=== PATIENT | female | born 1980 | race Caucasian/White ===

== ENCOUNTER 2022-03-19 11:07 | Day surgery (SDC) | payer OTHER, BC ==
[2022-03-19] MEDS ORDERED: hydrALAZINE 20 MG/ML VIAL SLOW IVP PRN (11:56)
== END 2022-03-19 19:20 | disposition home health service (06) ==
LOC: CSHLD/OP 11:07
PROVIDERS: ATTEND Obstetrics & Gynecology
DX: O9A.213 Injury, poisoning and certain other consequences of external causes complicating pregnancy, third trimester (principal); S80.02XA Contusion of left knee, initial encounter; O09.513 Supervision of elderly primigravida, third trimester; Z3A.33 33 weeks gestation of pregnancy; Z87.891 Personal history of nicotine dependence; Z79.82 Long term (current) use of aspirin; Z79.899 Other long term (current) drug therapy; W01.0XXA Fall on same level from slipping, tripping and stumbling without subsequent striking against object, initial encounter; Y99.0 Civilian activity done for income or pay
CPT/HCPCS: 76819; 99282

== ENCOUNTER 2022-04-20 09:44 | Outpatient (CLI) | payer BC, OTHER | END 2022-04-20 09:45 | disposition home or self-care (01) | LOC: CSHLAB 09:44 | PROVIDERS: ATTEND Obstetrics & Gynecology | DX: Z20.822 Contact with and (suspected) exposure to COVID-19 (principal) | CPT/HCPCS: U0003; U0005 ==

== ENCOUNTER 2022-04-24 14:00 | Inpatient (IN) | payer BC, OTHER ==
[~2022-04-24 14:00] MED LIST: Bupivacaine 0.25% HCL 30 ML VIAL ONE
[2022-04-24 16:18] VITALS: BMI 54.8
[2022-04-24] MEDS ORDERED: Butorphanol Tartrate 1 MG/ML VIAL SLOW IVP PRN (16:36)
[2022-04-24] MEDS ORDERED: hydrALAZINE 20 MG/ML VIAL SLOW IVP PRN ×3 (16:36)
[2022-04-24] MEDS ORDERED: Calcium Gluc 4.6 MEQ/10 ML (100 MG/ML) SLOW IVP PRN (16:36)
[2022-04-24] MEDS ORDERED: Zolpidem Tartrate 5 MG TAB PO PRN (16:36)
[2022-04-24] MEDS ORDERED: HYDROcodone/Acetaminophen 5/325 mg Tablet PO PRN ×2 (16:36)
[2022-04-24] MEDS ORDERED: Promethazine HCl 25 MG/ML VIAL IM PRN (16:36)
[2022-04-24] MEDS ORDERED: NS w/ Oxytocin 30 units 500 ML IV SCH ×2 (16:36)
[2022-04-24] MEDS ORDERED: Ondansetron PF 4 MG/2 ML Vial IVP PRN (16:36)
[2022-04-24] MEDS ORDERED: Labetalol HCl 100 MG/20 ML VIAL SLOW IVP PRN ×2 (16:36)
[2022-04-24] MEDS ORDERED: Lidocaine 1% (PF) 30 ML VIAL SC PRN (16:36)
[2022-04-24] MEDS ORDERED: Docusate 100 MG CAP PO PRN (16:36)
[2022-04-24] MEDS ORDERED: Ibuprofen 800 MG TAB PO PRN (16:36)
[2022-04-24] MEDS ORDERED: Misoprostol 200 MCG TAB PR PRN (16:36)
[2022-04-24] MEDS ORDERED: Lorazepam 2 MG/ML VIAL SLOW IVP PRN (16:36)
[2022-04-24] MEDS ORDERED: Acetaminophen 500 MG TAB PO PRN (16:36)
[2022-04-24] MEDS ORDERED: Diphenoxylate HCl/Atropine Tablet PO PRN ×2 (16:36)
[2022-04-24 16:43] LABS: Hemoglobin 11.1 g/dL (12.0-15.5); Mean Corpuscular HGB CONC 34.5 g/dL (32.0-36.0); Mean Corpuscular Hemoglobin 30.7 pg (27.0-33.0); Mean Corpuscular Volume 89.2 fl (81.6-98.3); Mean Platelet Volume 12.4 fl (7.4-10.4); Platelet Count 190 10x3/uL (150-450); Red Blood Cell (RBC) Count 3.61 10x6/uL (3.90-5.03); White Blood Cell (WBC) Count 8.3 10x3/uL (3.5-10.5)
[2022-04-24] MEDS: Misoprostol 100 MCG TAB VAG SCH ×3 (16:54→23:10)
[2022-04-24 17:24] LABS: HBSAg Index 0.13 S/CO (0-0.99); HIV (1/2) Antibody/Antigen Non-Reactive (NonReactive); HIV 1/2 INDEX 0.09 S/CO (<1.00); Hep B Surf Ag Non-Reactive S/CO (NonReactive); Syphilis Antibody Nonreactive (Nonreactive); Syphilis Antibody Index 0.06 S/CO (<1.00 Non-Reactive)
[2022-04-24] MEDS: Mag-Al 1200 mg/1200 mg/30 ML UDCUP PO PRN (18:15)
[2022-04-24] MEDS: Lactated Ringer's 1,000 ML IV SCH (21:17)
[2022-04-25] MEDS: Misoprostol 100 MCG TAB VAG SCH ×2 (02:10→06:17)
[2022-04-25] MEDS: Lactated Ringer's 1,000 ML IV SCH (05:50)
[2022-04-25] MEDS ORDERED: Fentanyl 2 mcg/Bup 0.1% Cadd 0 ML ONE (11:21)
[2022-04-25] MEDS ORDERED: Naloxone HCl 0.4 mg/ml Vial IVP PRN ×2 (12:18)
[2022-04-25] MEDS ORDERED: Moisturizing Cream (Eucerin) 113 GM JAR TOP PRN (12:18)
[2022-04-25] MEDS ORDERED: diphenhydrAMINE 50 MG/ML VIAL IVP PRN (12:18)
[2022-04-25] MEDS ORDERED: ePHEDrine Sulfate 50 MG/10 ML VIAL SLOW IVP PRN (12:18)
[2022-04-25] MEDS ORDERED: Promethazine HCl 25 MG/ML VIAL IM PRN (12:18)
[2022-04-25] MEDS ORDERED: Ondansetron PF 4 MG/2 ML Vial IVP PRN ×2 (12:18→20:23)
[2022-04-25] MEDS ORDERED: Acetaminophen 325 MG TAB PO PRN (12:18)
[2022-04-25] MEDS ORDERED: Lactated Ringer's 500 ML IV PRN (12:18)
[2022-04-25] MEDS ORDERED: Fentanyl 2 mcg/Bupivacaine 0.1% Cassette 100 ML EPIDURAL SCH (12:30)
[2022-04-25] MEDS ORDERED: Communication Order-Pharmacy FS SCH (12:30)
[2022-04-25] MEDS: Mag-Al 1200 mg/1200 mg/30 ML UDCUP PO PRN (16:39)
[2022-04-25] MEDS ORDERED: Fentanyl 2 mcg/Bup 0.1% Cadd 100 ML ONE (19:45)
[2022-04-25] MEDS ORDERED: Lidocaine 1% (PF) 30 ML VIAL ONE (20:02)
[2022-04-25] MEDS ORDERED: Benzocaine-Menthol 82.5 ML CAN TOP PRN (20:23)
[2022-04-25] MEDS ORDERED: hydrALAZINE 20 MG/ML VIAL SLOW IVP PRN (20:23)
[2022-04-25] MEDS ORDERED: Boostrix 0.5 ML (Tdap) VIAL IM ONE (20:23)
[2022-04-25] MEDS ORDERED: Preparation H Ointment 28 GM TUBE PR PRN (20:23)
[2022-04-25] MEDS ORDERED: HYDROcodone/Acetaminophen 5/325 mg Tablet PO PRN ×2 (20:23)
[2022-04-25] MEDS ORDERED: Misoprostol 200 MCG TAB VAG PRN (20:23)
[2022-04-25] MEDS ORDERED: Lanolin Ointment 7 GM TUBE TOP PRN (20:23)
[2022-04-25] MEDS ORDERED: Zolpidem Tartrate 5 MG TAB PO PRN ×2 (20:23→20:43)
[2022-04-25] MEDS ORDERED: diphenhydrAMINE 25 MG CAP PO PRN (20:23)
[2022-04-25] MEDS ORDERED: Milk Of Magnesia 30 ML UDCUP PO PRN (20:23)
[2022-04-25] MEDS ORDERED: Bisacodyl 10 MG SUPP PR PRN (20:23)
[2022-04-25] MEDS: Ibuprofen 800 MG TAB PO SCH (20:51)
[2022-04-25] MEDS ORDERED: NS w/ Oxytocin 30 units 500 ML IV SCH (21:00)
[2022-04-25] MEDS: Docusate 100 MG CAP PO SCH (22:00)
[2022-04-26 04:59] LABS: Hemoglobin 9.7 g/dL (12.0-15.5); Mean Corpuscular Hemoglobin 30.9 pg (27.0-33.0); Mean Corpuscular Volume 88.2 fl (81.6-98.3); Mean Platelet Volume 12.7 fl (7.4-10.4); Platelet Count 138 10x3/uL (150-450); RBC Distribution Width 14.2 % (11.5-14.5); Red Blood Cell (RBC) Count 3.14 10x6/uL (3.90-5.03); White Blood Cell (WBC) Count 11.9 10x3/uL (3.5-10.5)
[2022-04-26] MEDS: Ibuprofen 800 MG TAB PO SCH ×3 (05:36→21:18)
[2022-04-26] MEDS: Prenatal Vitamin 1 TAB PO SCH (12:01)
[2022-04-26] MEDS: Docusate 100 MG CAP PO SCH ×2 (12:01→21:18)
[2022-04-26] MEDS: Ferrous Sulfate 325 MG TAB PO SCH ×2 (12:02→17:17)
[2022-04-26] MEDS: Misoprostol 100 MCG TAB VAG SCH (14:50)
[2022-04-26] MEDS: Lactated Ringer's 1,000 ML IV SCH (14:51)
[2022-04-26] MEDS ORDERED: Hydrocortisone 1% Cream 30 GM TUBE TOP PRN (15:10)
[2022-04-27] MEDS: Ibuprofen 800 MG TAB PO SCH (06:08)
[2022-04-27 07:51] VITALS: BP 128/60; TEMP 97.8
[2022-04-27] MEDS: Prenatal Vitamin 1 TAB PO SCH (08:38)
[2022-04-27] MEDS: Ferrous Sulfate 325 MG TAB PO SCH (08:38)
[2022-04-27] MEDS: Docusate 100 MG CAP PO SCH (08:38)
[2022-04-27] MEDS ORDERED: busPIRone HCl 5 MG TAB PO SCH (09:00)
== END 2022-04-27 13:45 | disposition home or self-care (01) | DRG 807 ==
LOC: CSHLD 15:55 → CSHPP 04-25 22:25
PROVIDERS: ADMIT Obstetrics & Gynecology; ATTEND Obstetrics & Gynecology
PROC: 10E0XZZ Delivery of Products of Conception, External Approach (ICD-10-PCS; principal; 2022-04-25)
PROC: 3E0P7VZ Introduction of Hormone into Female Reproductive, Via Natural or Artificial Opening (ICD-10-PCS; 2022-04-25)
PROC: 10907ZC Drainage of Amniotic Fluid, Therapeutic from Products of Conception, Via Natural or Artificial Opening (ICD-10-PCS; 2022-04-25)
PROC: 0HQ9XZZ Repair Perineum Skin, External Approach (ICD-10-PCS; 2022-04-25)
DX: O99.02 Anemia complicating childbirth (principal); Z37.0 Single live birth; Z91.048 Other nonmedicinal substance allergy status; Z3A.39 39 weeks gestation of pregnancy; F41.9 Anxiety disorder, unspecified; F32.A Depression, unspecified; D64.9 Anemia, unspecified; O99.344 Other mental disorders complicating childbirth; Z79.82 Long term (current) use of aspirin; Z79.899 Other long term (current) drug therapy; F17.210 Nicotine dependence, cigarettes, uncomplicated; O99.334 Smoking (tobacco) complicating childbirth; O70.0 First degree perineal laceration during delivery
CPT/HCPCS: 36415; 51702; 85027; 86780; 86850; 86900; 86901; 87340; 87389; J2590; J7120; S0020

== ENCOUNTER 2022-04-28 16:09 | Inpatient (IN) | payer BC, OTHER ==
[2022-04-28] MEDS ORDERED: Acetaminophen 500 MG TAB ONE (17:10)
[2022-04-28 17:16] LABS: #Eosinphils 0.1 10x3/uL (0.0-0.5); #Monocytes 0.6 10x3/uL (0.0-1.1); #Neutrophils 9.4 10x3/uL (1.5-8.4); %Basophils 0.3 % (0.0-2.0); %Eosinophils 0.5 % (0.0-6.0); %Lymphocytes 7.2 % (18.0-47.0); %Monocytes 5.3 % (0.0-10.0); %Neutrophils 84.5 % (40.0-75.0); Hemoglobin 9.2 g/dL (12.0-15.5); Mean Corpuscular HGB CONC 34.7 g/dL (32.0-36.0); Mean Corpuscular Hemoglobin 31.1 pg (27.0-33.0); Mean Corpuscular Volume 89.5 fl (81.6-98.3); Platelet Count 185 10x3/uL (150-450); RBC Distribution Width 14.3 % (11.5-14.5); Red Blood Cell (RBC) Count 2.96 10x6/uL (3.90-5.03); White Blood Cell (WBC) Count 11.1 10x3/uL (3.5-10.5)
[2022-04-28 17:26] LABS: ALT (SGPT) 30 U/L (8-55); AST (SGOT) 25 U/L (5-34); Albumin 2.9 g/dL (3.5-5.0); Alkaline Phosphatase 67 U/L (40-110); Anion Gap 17 mmol/L (10-20); BUN (Urea Nitrogen) 8 mg/dL (7.0-18.7); Bilirubin, Total 0.3 mg/dL (0.2-1.2); Calc. Creatinine Clearance 0 mL/min (70-130); Calcium 9.2 mg/dL (7.8-10.44); Carbon Dioxide 23 mmol/L (22-29); Chloride 104 mmol/L (98-107); Globulin 3.1 g/dL (2.4-3.5); Glucose 140 mg/dL (70-105); Potassium 3.6 mmol/L (3.5-5.1); Sodium 140 mmol/L (136-145)
[2022-04-28 17:48] LABS: Bilirubin Neg (Negative); Blood, Urine 250 (Negative); Clarity Bloody (Clear); Glucose, Urine (Dipstick) Normal (Negative); Ketone, Urine Negative (Negative); Leukocyte 500 (Negative); Nitrite Negative (Negative); Protein, Urine (Dipstick) 100 mg/dl (Neg-Trace); Specific Gravity, Urine 1.015 (1.002-1.036); Urobilinogen Normal mg/dL (Less than 2)
[2022-04-28 17:55] LABS: RBC/HPF Greater than 50 HPF (0-3); WBC/HPF Greater than 50 HPF (0-3)
[2022-04-28 17:56] LABS: Bacteria/HPF 3+ HPF (None Seen)
[2022-04-28 17:57] LABS: Mucous/LPF 1+ LPF (<2+)
[2022-04-28] MEDS ORDERED: cefTRIAXone\\ROCEPHIN 2 GM VIAL ONE (18:40)
[2022-04-28] MEDS ORDERED: Milk Of Magnesia 30 ML UDCUP PO PRN (19:36)
[2022-04-28] MEDS ORDERED: Bisacodyl 10 MG SUPP PR PRN (19:36)
[2022-04-28] MEDS ORDERED: Lanolin Ointment 7 GM TUBE TOP PRN (19:36)
[2022-04-28] MEDS ORDERED: hydrALAZINE 20 MG/ML VIAL SLOW IVP PRN (19:36)
[2022-04-28] MEDS ORDERED: Preparation H Ointment 28 GM TUBE PR PRN (19:36)
[2022-04-28 19:46] LABS: SARS-CoV-2 NAA Rapid Test Not Detected (NotDetected)
[2022-04-28 20:28] LABS: Lactic Acid 1.1 mmol/L (0.5-2.2)
[2022-04-28] MEDS: Ibuprofen 800 MG TAB PO SCH (21:49)
[2022-04-28] MEDS: Docusate 100 MG CAP PO SCH (21:49)
[2022-04-28] MEDS: Enoxaparin Sodium 40 MG/0.4 ML SYRINGE SC SCH (21:49)
[2022-04-28] MEDS: Lactated Ringer's 1,000 ML IV SCH (21:49)
[2022-04-28] MEDS: metroNIDAZOLE 500 MG in Premix Bag 1 BAG IVPB SCH (23:48)
[2022-04-29] MEDS ORDERED: Acetaminophen 325 MG TAB PO PRN (00:52)
[2022-04-29 04:52] LABS: Hemoglobin 8.2 g/dL (12.0-15.5); Mean Corpuscular Hemoglobin 30.7 pg (27.0-33.0); Mean Corpuscular Volume 90.3 fl (81.6-98.3); Platelet Count 176 10x3/uL (150-450); RBC Distribution Width 14.5 % (11.5-14.5); Red Blood Cell (RBC) Count 2.67 10x6/uL (3.90-5.03); White Blood Cell (WBC) Count 12.8 10x3/uL (3.5-10.5)
[2022-04-29 05:06] LABS: MDiff Complete? YES
[2022-04-29] MEDS: Lactated Ringer's 1,000 ML IV SCH ×3 (05:09→17:56)
[2022-04-29 05:13] LABS: Band 15 % (5-11); Lymphocytes 4 % (21-51); Monocytes 5 % (0-10); Neutrophil 76 % (42-75)
[2022-04-29 05:15] LABS: Platelet Morphology Comment Appears Adequate; RBC Morphology Normal
[2022-04-29] MEDS: Ibuprofen 800 MG TAB PO SCH ×3 (06:05→21:39)
[2022-04-29] MEDS: metroNIDAZOLE 500 MG in Premix Bag 1 BAG IVPB SCH ×3 (06:06→17:14)
[2022-04-29] MEDS: busPIRone HCl 5 MG TAB PO SCH (08:51)
[2022-04-29] MEDS: Prenatal Vitamin 1 TAB PO SCH (08:51)
[2022-04-29] MEDS: Ferrous Sulfate 325 MG TAB PO SCH (08:52)
[2022-04-29] MEDS: Docusate 100 MG CAP PO SCH ×2 (08:52→21:40)
[2022-04-29] MEDS ORDERED: cefTRIAXone\\ROCEPHIN 2 GM in Sodium Chloride 0.9% 100 ML IVPB SCH (18:00)
[2022-04-29] MEDS: Enoxaparin Sodium 40 MG/0.4 ML SYRINGE SC SCH (21:40)
[2022-04-30] MEDS: metroNIDAZOLE 500 MG in Premix Bag 1 BAG IVPB SCH ×3 (00:39→11:26)
[2022-04-30] MEDS: Lactated Ringer's 1,000 ML IV SCH (00:44)
[2022-04-30] MEDS: Ibuprofen 800 MG TAB PO SCH (05:41)
[2022-04-30] MEDS: busPIRone HCl 5 MG TAB PO SCH (07:52)
[2022-04-30] MEDS: Prenatal Vitamin 1 TAB PO SCH (07:52)
[2022-04-30] MEDS: Ferrous Sulfate 325 MG TAB PO SCH (07:52)
[2022-04-30] MEDS: Docusate 100 MG CAP PO SCH (07:53)
[2022-04-30 11:25] VITALS: BP 131/64; TEMP 98.1
== END 2022-04-30 13:00 | disposition home or self-care (01) | DRG 776 ==
LOC: CSHERS 16:09 → CSHPP 20:31
PROVIDERS: ADMIT Obstetrics & Gynecology; ATTEND Obstetrics & Gynecology
DX: O85 Puerperal sepsis (principal); O86.20 Urinary tract infection following delivery, unspecified; N39.0 Urinary tract infection, site not specified; E87.2 Acidosis; O86.12 Endometritis following delivery; Z20.822 Contact with and (suspected) exposure to COVID-19; F32.9 Major depressive disorder, single episode, unspecified; F41.1 Generalized anxiety disorder; E66.9 Obesity, unspecified; F90.9 Attention-deficit hyperactivity disorder, unspecified type; O99.215 Obesity complicating the puerperium; O99.345 Other mental disorders complicating the puerperium; Z91.048 Other nonmedicinal substance allergy status; Z79.82 Long term (current) use of aspirin; Z79.899 Other long term (current) drug therapy; Z87.891 Personal history of nicotine dependence; O99.285 Endocrine, nutritional and metabolic diseases complicating the puerperium
CPT/HCPCS: 36415; 71045; 80053; 81003; 81015; 83605; 85025; 87040; 87077; 87086; 87149; 93005; J0696; J1650; J3490; J7120

== ENCOUNTER 2024-09-08 10:29 | Emergency (ER) | payer BC ==
[2024-09-08 11:10] LABS: #Basophils 0.05 10x3/uL (0.0-0.2); #Eosinophils 0.14 10x3/uL (0.0-0.5); #Monocytes 0.53 10x3/uL (0.0-1.1); #Neutrophils 5.36 10x3/uL (1.5-8.4); %Basophils 0.6 % (0.0-2.0); %Eosinophils 1.8 % (0.0-6.0); %Lymphocytes 22.6 % (18.0-47.0); %Monocytes 6.7 % (0.0-10.0); %Neutrophils 67.5 % (40.0-75.0); Hematocrit 38.4 % (34.9-44.5); Mean Corpuscular HGB CONC 33.9 g/dL (32.0-36.0); Mean Corpuscular Volume 88.7 fL (81.6-98.3); Mean Platelet Volume 10.8 fL (7.4-10.4); Platelet Count 216 10x3/uL (150-450); RBC Distribution Width 13.2 % (11.5-14.5); Red Blood Cell (RBC) Count 4.33 10x6/uL (3.90-5.03); White Blood Cell (WBC) Count 7.9 10x3/uL (3.5-10.5)
[2024-09-08] MEDS ORDERED: Aspirin Chewable 81 MG TAB ONE (11:16)
[2024-09-08] MEDS ORDERED: Nitroglycerin 2% Ointment 1 INCH/1 GM Packet ONE (11:16)
[2024-09-08 11:21] LABS: ALT (SGPT) 23 U/L (8-55); AST (SGOT) 21 U/L (5-34); Albumin 3.8 g/dL (3.5-5.0); Alkaline Phosphatase 45 U/L (40-110); Anion Gap 12 mmol/L (10-20); BUN (Urea Nitrogen) 17 mg/dL (7.0-18.7); Bilirubin, Total 0.2 mg/dL (0.2-1.2); Calc. Creatinine Clearance 0 mL/min (70-130); Calcium 9.4 mg/dL (7.8-10.44); Carbon Dioxide 28 mmol/L (22-29); Chloride 105 mmol/L (98-107); Estimated GFR 108; Globulin 3.4 g/dL (2.4-3.5); Glucose 95 mg/dL (70-105); Potassium 4.2 mmol/L (3.5-5.1); Protein, Total 7.2 g/dL (6.0-8.3); Sodium 141 mmol/L (136-145)
[2024-09-08 11:22] LABS: Troponin I Less than 0.010 ng/mL (< 0.028)
== END 2024-09-08 14:47 | disposition home or self-care (01) ==
LOC: CSHERS 10:29
DX: I10 Essential (primary) hypertension (principal); R07.9 Chest pain, unspecified; R51.9 Headache, unspecified; F17.210 Nicotine dependence, cigarettes, uncomplicated
CPT/HCPCS: 71045; 80053; 83880; 84484; 85025; 93005